=== PATIENT | female | born 1965 | race Two or more races ===

== ENCOUNTER 2024-10-19 17:56 | Emergency (ER) | payer MEDICAID, SELFPAY ==
--- NOTE | 2024-10-19 18:59 | EDNOTE_ITS ---
ED General RME/HPI General Chief complaint: Back Pain/Injury Stated complaint: BACK PAIN Time Seen by Provider: 10/19/24 18:51 Arrival date/time: 10/19/24 17:56 RME / HPI RME / HPI narrative: This section includes all my notes and documentations, including HPI, PE, and ED course. Boyd Knox MD HPI: 59yo female accompanied by her daughter presents to the ED for a chief complaint of left upper back pain x yesterday. Patient states the pain radiates to the left side of her chest. She denies any falls or injuries. She endorses having a mild cough and difficulty taking a deep breath. She denies any SOB or any other associated symptoms. No further complaints reported. ROS: All negative except as documented in HPI. Physical Exam: General: Alert and oriented. Hacking cough noted. Eyes: Conjunctivae and lids clear. ENT: No nasal congestion. Neck: Supple. Heart: RRR. Lungs: No respiratory distress. Good air movement with bibasilar rales. Abdomen: Soft and nontender. Legs: No clubbing, cyanosis, edema. Skin: Warm and dry. Neuro: Alert and oriented X 3. I reviewed all diagnostic test results. My interpretation of the EKG is sinus rhythm with no acute ST?T changes. My interpretation of the chest x-ray is infiltrates. Blood tests unremarkable, including negative troponin. At this point, diagnoses include pneumonia. Treatment here included Zithromax and prednisone and two Tylenol #3. Recommended a trial of outpatient treatment. Based on my best medical judgment, made decision no further evaluation or treatment indicated at this time. Patient understands and agrees to the discharge instructions customized and printed, see below. Discharge instructions from Dr. Knox: --Fortunately, there is no heart attack. You have pneumonia. --No physical exertion for 3 days to help rest the lungs. --No smoking or exposure to smoking or pets or dust or cold or humidity. --Zithromax to kill the germs causing the pneumonia. --Prednisone to help decrease the swelling in the airways. --Albuterol 2 puffs every 4-6 hours as needed for cough or shortness of breath. --Tylenol with codeine for severe pain or severe cough. --See a private doctor on 10/24/2024 if not completely better. --Seek immediate medical care with worsening or with any concerns. Boyd Knox MD Related Data Home Medications ?Medication ?Instructions ?Recorded ?Confirmed atorvastatin 10 mg tablet 10 mg PO QPM 01/18/23 01/25/23 levothyroxine 50 mcg tablet 50 mcg PO QDAY 01/18/23 01/25/23 (Euthyrox) Previous Rx's ?Medication ?Instructions ?Recorded pantoprazole 40 mg tablet,delayed 40 mg PO QDAY 30 days #30 tabs 01/18/23 release (Protonix) acetaminophen 300 mg-codeine 30 mg 2 tab PO TID PRN pain #20 tabs 10/19/24 tablet albuterol sulfate 90 mcg/actuation 2 inh inhalation QID PRN shortness 10/19/24 aerosol inhaler of breath or wheezing #8.5 grams azithromycin 500 mg tablet 500 mg PO QDAY 3 days #3 tabs 10/19/24 (Zithromax TRI-CHERIE) prednisone 20 mg tablet 40 mg PO DAILY 3 days #6 tabs 10/19/24 Allergies Allergy/AdvReac Type Severity Reaction Status Date / Time No Known Allergies Allergy Verified 10/19/24 18:02 Review of Systems Review of Systems Systems Reviewed: All systems reviewed, normal except as documented Past Medical History Past Medical History NEUROLOGIC: Positive Migraine; Negative Neurological Disorders or Seizures CARDIAC: Positive Cardiac Disorders and Hypercholesterolemia; Negative Congestive Heart Failure RESPIRATORY: Negative Chronic Obstructive Pulmonary Disease (COPD) GASTROINTESTINAL: Positive Gastrointestinal Disorders (h.pylori) and Obesity GENITOURINARY: Negative Genitourinary Disorders or Renal Disease MUSCULOSKELETAL: Negative Musculoskeletal Disorders ENDOCRINE: Negative Endocrine Disorders (pre diabeties), Diabetes Mellitus Type 1 or Diabetes Mellitus Type 2 HEMATOLOGIC: Negative Blood Disorders OTHER HISTORY: Positive Chicken Pox and Measles; Negative Blood Transfusions, Blood Transfusion Reaction, Anesthesia Reactions or Cancer Surgical History SURGICAL: Positive Tubal Ligation Social History SMOKING STATUS: Never smoker ED Exam Narrative Physical exam: As noted in HPI. Course Course Course Narrative: CXR is ordered for determining the etiology of chest pain. Quality Measures none Orders Category Date Time Status Bedside COVID-19 Antigen Test NOW Care 10/19/24 19:08 Active EKG (ED ONLY) *Do not use* NOW Care 10/19/24 19:08 Completed EKG (ED Only) Stat Exams 10/19/24 19:08 Ordered XR chest 1V portable Stat Exams 10/19/24 19:08 Completed CBC Stat Lab 10/19/24 19:38 Completed CMP [Comprehensive Metabolic Panel] Stat Lab 10/19/24 19:38 Completed Magnesium Stat Lab 10/19/24 19:38 Completed Troponin I Stat Lab 10/19/24 19:38 Completed ACETAMINOPHEN w/COD 300-30 [Tylenol w/Cod #3] Med 10/19/24 21:31 Discontinued 2 tab PO X1 ONE Azithromycin Po [Zithromax PO] Med 10/19/24 21:20 Discontinued 500 mg PO X1 ONE predniSONE Med 10/19/24 21:31 Discontinued 60 mg PO X1 ONE Vital Signs Vital signs: Vital Signs Temperature 98.6 F 10/19/24 19:07 Pulse Rate 84 10/19/24 19:07 Respiratory Rate 18 10/19/24 19:07 Blood Pressure 113/62 10/19/24 19:07 Pulse Oximetry (%) 98 10/19/24 19:07 Oxygen Delivery Method Room Air 10/19/24 19:07 MDM Patient data External records reviewed:: [facility] previous records (Per chart review, patient has no previous ED visits to this facility.) Clinical information provided by:: patient Social determinants that could affect healthcare access:: none Patient has the following chronic illnesses:: HLD How is presenting disease/condition affected by chronic disease/condition?: u neffected by Evaluation data The following diagnostics were reviewed and interpreted by me:: lab results, radiology exam(s) and EKG tracing(s) (My interpretation of the EKG is: Sinus rhythm (76 bpm) with nonspecific ST-T changes. Boyd Knox MD) Lab and/or radiology exams considered but not ordered:: none Interpretation Summary: Labs are unremarkable. CXR shows pneumonia. Medications Medications considered but not ordered:: none Medication administrations:: Medication Administration History Discontinued Medications Acetaminophen/Codeine Phosphate (Acetaminophen W/Cod 300-30 Tablet) 2 tab PO X1 ONE Stop: 10/19/24 21:32 Azithromycin (Azithromycin 250 Mg Tablet) 500 mg PO X1 ONE Stop: 10/19/24 21:21 Last Admin: 10/19/24 21:31 Dose: 500 mg Documented By: JOEL Prednisone (Prednisone 20 Mg Tablet) 60 mg PO X1 ONE Stop: 10/19/24 21:32 Prednisone and Zithromax and two Tylenol #3 Consultations Consultation(s) initiated? (list below): No Diagnosis Differential Diagnosis ED Complaint MDM: chest pain, back pain, pneumonia, Influenza, CA Most likely diagnosis given after review of the tests above:: pneumonia Admission Indicated Admission indicated?: not indicated Explain why admission is indicated or not indicated:: Admission criteria not met. Admission Request Was there a request for admission?: No Disposition Plan Disposition Plan: Discharge Discharge Attestation Discharge Attestation: The patient and all family members were given an opportunity to ask questions and understood the discharge instructions. Discharge instructions specifically effects, indications for sooner follow up or return to the emergency department, and the expected course of current diagnosis. Patient condition: Stable Medical Decision Making MDM Narrative MDM Narrative: Scribe Attestation: 10/19/24 - Megan Vogt am scribing for and in the presence of Dr. Knox. Differential Diagnosis Differential Diagnosis: chest pain, back pain, pneumonia, Influenza, CA Lab Data 10/19/24 19:38 10/19/24 19:38 Labs: Lab Results 10/19/24 Range/Units 19:38 WBC 10.4 (3.6-11.0) Thou/mm3 RBC 5.30 H (4.00-5.20) Miln/mm3 Hgb 15.4 (12.0-16.0) g/dL Hct 45.7 (36.0-46.0) % MCV 86 (80-100) fL MCH 29.1 (25.0-35.0) pg MCHC 33.7 (31.0-37.0) g/dl RDW Std Deviation 38.7 (36.4-46.3) fL Plt Count 273 (140-440) Thou/mm3 Neut % (Auto) 61 (37-80) % Lymph % (Auto) 29 (10-50) % [place] % (Auto) 6 (0-12) % Eos % (Auto) 3 (0-10) % Baso % (Auto) 1 (0-2.5) % Neut # (Auto) 6.4 (1.8-7.7) Thou/mm3 Lymph # (Auto) 3.0 (1.0-4.8) Thou/mm3 [place] # (Auto) 0.6 (0.0-0.8) Thou/mm3 Eos # (Auto) 0.3 (0.0-0.5) Thou/mm3 Baso # (Auto) 0.1 (0.0-0.2) Thou/mm3 Immature Gran # (Auto) 0.03 H (0.00-0.00) Thou/mm3 Absolute Nucleated RBC 0.00 (0.00-0.00) Thou/mm3 Immature Gran % 0 (0-0) % Nucleated RBC % 0 (0) /100 WBC Sodium 140 (136-145) mMol/L Potassium 4.2 (3.4-5.1) mMol/L Chloride 106 (98-107) mMol/L Carbon Dioxide 27.6 (20.0-31.0) mMol/L Anion Gap 6 L (7-16) BUN 12 (9-23) mg/dL Creatinine 0.9 (0.6-1.3) mg/dL Estim Creat Clear Calc Not Performed. eGFR > 60 (60 - ) See Note BUN/Creatinine Ratio 13 (12-20) Ratio Glucose 108 H (74-106) mg/dL Calculated Osmolality 280 (275-295) Calcium 9.7 (8.3-10.6) mg/dL Corrected Calcium 9.7 (8.5-10.1) mg/dL Magnesium 2.1 (1.6-2.6) mg/dL Total Bilirubin 1.0 (0.3-1.2) mg/dL AST 26 (0-34) U/L ALT 31 (10-49) U/L Alkaline Phosphatase 92 (46-116) U/L Troponin I < 0.002 (0.0-0.045) ng/mL Total Protein 7.7 (5.7-8.2) gm/dL Albumin 4.9 (3.5-5.0) gm/dL Globulin 2.8 (2.3-3.5) gm/dL Albumin/Globulin Ratio 1.8 (1.2-2.2) Discharge Plan Plan Patient Disposition: HOME (Self Care) Prescriptions/Referrals Prescriptions/Med Rec: New prednisone 20 mg tablet 40 mg PO DAILY 3 Days Qty: 6 0RF Taper: Prednisone Taper 20 mg DAILY for 2 Days and 0 Hour 10 mg DAILY for 2 Days and 0 Hour 5 mg DAILY for 7 Days and 0 Hour acetaminophen-codeine 300-30 mg tablet 2 tab PO TID MDD 6 PRN (Reason: pain) Qty: 20 0RF albuterol sulfate 90 mcg/actuation HFA aerosol inhaler 2 inh inhalation QID PRN (Reason: shortness of breath or wheezing) Qty: 8.5 0RF azithromycin [Zithromax TRI-CHERIE] 500 mg tablet 500 mg PO QDAY 3 Days Qty: 3 0RF No Action atorvastatin 10 mg Tablet 10 mg PO QPM levothyroxine [Euthyrox] 50 mcg Tablet 50 mcg PO QDAY pantoprazole [Protonix] 40 mg Tablet,Delayed Release (Dr/Ec) 40 mg PO QDAY 30 Days Qty: 30 2RF Referrals: Jw Ramesh MD [Primary Care Provider] - In 1 week Problem List Clinical Impression: Pneumonia Patient/Caregiver Discharge Instructions Discharge Activity: activity as tolerated Education Materials: ED Pneumonia (Adult) Additional Instructions: Discharge instructions from Dr. Knox: --Fortunately, there is no heart attack. You have pneumonia. --No physical exertion for 3 days to help rest the lungs. --No smoking or exposure to smoking or pets or dust or cold or humidity. --Zithromax to kill the germs causing the pneumonia. --Prednisone to help decrease the swelling in the airways. --Albuterol 2 puffs every 4-6 hours as needed for cough or shortness of breath. --Tylenol with codeine for severe pain or severe cough. --See a private doctor on 10/24/2024 if not completely better. --Seek immediate medical care with worsening or with any concerns. Print Language: [place] Stand Alone Forms: [employer] Info., Patient Portal Info Letter
[2024-10-19 19:07] VITALS: BP 113/62; PULSE 84; RESP 18; TEMP 37; O2SAT 98
--- NOTE | 2024-10-19 19:08 | XR_ITS ---
Examination: AP chest single view Technique: AP upright portable chest single view Exam date and time: October 19, 2024 1931 hrs. Indications: Shortness of breath today. Findings: Early pneumonia right base obscuring detail medial portion right hemidiaphragm Normal heart size No pulmonary edema Impression: Early pneumonia right base
[2024-10-19 19:53] LABS: Basophils # (Auto) 0.1 Thou/mm3 (0.0-0.2); Basophils % (Auto) 1 % (0-2.5); Eosinophils # (Auto) 0.3 Thou/mm3 (0.0-0.5); Eosinophils % (Auto) 3 % (0-10); Hematocrit 45.7 % (36.0-46.0); Hemoglobin 15.4 g/dL (12.0-16.0); Immature Granulocytes % (Auto) 0 % (0-0); Immature Granulocytes Auto 0.03 Thou/mm3 (0.00-0.00); Lymphocytes % (Auto) 29 % (10-50); Mean Corpuscular HGB Conc 33.7 g/dl (31.0-37.0); Mean Corpuscular Hemoglobin 29.1 pg (25.0-35.0); Mean Corpuscular Volume 86 fL (80-100); Monocytes # (Auto) 0.6 Thou/mm3 (0.0-0.8); Monocytes % (Auto) 6 % (0-12); Neutrophils # (Auto) 6.4 Thou/mm3 (1.8-7.7); Neutrophils % (Auto) 61 % (37-80); Nucleated Red Blood Cell % 0 /100 WBC (0); Platelet Count 273 Thou/mm3 (140-440); RDW Standard Deviation 38.7 fL (36.4-46.3); White Blood Count 10.4 Thou/mm3 (3.6-11.0)
[2024-10-19 20:18] LABS: Alanine Aminotransferase 31 U/L (10-49); Albumin, Serum 4.9 gm/dL (3.5-5.0); Albumin/Globulin Ratio 1.8 (1.2-2.2); Alkaline Phosphatase 92 U/L (46-116); Anion Gap 6 (7-16); Aspartate Amino Transferase 26 U/L (0-34); BUN/Creatinine Ratio 13 Ratio (12-20); Blood Urea Nitrogen 12 mg/dL (9-23); Calcium 9.7 mg/dL (8.3-10.6); Calcium (Corrected) 9.7 mg/dL (8.5-10.1); Carbon Dioxide 27.6 mMol/L (20.0-31.0); Chloride 106 mMol/L (98-107); Creatinine (Component) 0.9 mg/dL (0.6-1.3); Globulin 2.8 gm/dL (2.3-3.5); Glucose 108 mg/dL (74-106); Magnesium 2.1 mg/dL (1.6-2.6); Osmolality,Calculated 280 (275-295); Potassium 4.2 mMol/L (3.4-5.1); Sodium 140 mMol/L (136-145); Total Protein 7.7 gm/dL (5.7-8.2); Troponin I < 0.002 ng/mL (0.0-0.045); eGFR > 60 See Note
[2024-10-19] MEDS: AZITHROMYCIN 250 MG TABLET 500 MG PO (21:31)
[2024-10-19] MEDS: predniSONE 20 MG TABLET 60 MG PO (21:51)
[2024-10-19] MEDS: ACETAMINOPHEN w/COD 300-30 TABLET 2 TAB PO (21:51)
== END 2024-10-19 21:54 | disposition home or self-care (01) ==
PROVIDERS: Emergency Provider Emergency Medicine; PCP Internal Medicine
DX: J18.9 Pneumonia, unspecified organism (principal); R94.31 Abnormal electrocardiogram [ECG] [EKG]
CPT/HCPCS: 36415; 71045; 80053; 83735; 84484; 85025; 87811; 93005; 99283; J7512; A9270

== ENCOUNTER 2025-01-21 10:09 | Outpatient (RCR) | payer MEDICAID, SELFPAY ==
--- NOTE | 2025-01-21 16:53 | CTCCONSULT_ITS ---
Patient: SARINA MCHUGH : 1965 MR#: [id number] Page 2 of 2 CONSULTATION NOTE DATE OF CONSULTATION: 01/21/2025 NAME: SARINA MCHUGH ACCOUNT: [id number] : 1965 AGE: 59 REFERRING PHYSICIAN: Eugenia Gonzalez MD ([place]) PRIMARY PHYSICIAN: Eugenia Gonzalez MD ([place]) REASON FOR VISIT: Erythrocytosis HISTORY OF PRESENT ILLNESS: 59-year-old female with a diagnosis of erythrocytosis. Patient does not have any history of cancer or leukemia. Patient is not on any kind of supplement. She snores at nighttime. She was on Wegovy for weight loss but was unable to tolerate it. 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 levothyroxine - 50 mcg 1 tab Daily Medications Last Reconciled by Raissa Henning RN on 01/21/2025 ALLERGIES: REVIEW OF SYSTEMS: A complete 14-point review of systems was performed and is negative except as noted in interval history. PHYSICAL EXAMINATION: VITAL SIGNS: Temperature?99, B/P?119/76, Height?63?inches, Oxygen?Saturation?100% Weight?189?lbs PAIN: 0 - No pain ECOG Performance Status: 1 - Symptomatic; ambulatory; restricted in strenuous activity GENERAL APPEARANCE: Appears well, in no apparent distress, appropriately interactive. HEENT: Normocephalic, no temporal wasting, normal conjunctiva, no scleral icterus, normal hearing, lips without lesions, neck normal range of motion. CARDIOVASCULAR: Not assessed. PULMONARY: Normal respiratory effort, no respiratory distress or use of accessory muscles, speaking in full sentences, no tachypnea. EXTREMITIES: No pedal edema or cyanosis. SKIN: Normal skin appearance. NEUROLOGIC: Alert and oriented x4. PSHYCHIATRIC: Appropriate affect, mood normal, behavior normal, intact thought and speech. 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 Patient's erythrocytosis likely from hypoxia from her obstructive sleep apnea Will refer patient for sleep study Will check for JAK2 and erythropoietin level testosterone level and myeloproliferative panel Will repeat labs Start phlebotomy if patient's hematocrit is above 45 ORDERS: Order # Description [id number] Comprehensive Metabolic Panel - 12 + CBC with Auto Diff [id number] Hereditary Hemochromatosis DNA analysis [id number] Testosterone; Total + Erythropoieten Level + Myeloproliferative Neoplasms Extended Reflex Panel + PAULINO - 2 Mutation Quant [id number] Follow Up 2 Months [id number] RETURN TO CLINIC: 2 months with the blood and sleep study BILLING AND COMPLIANCE: I reviewed external records from providers outside my specialty as summarized above. I spent a total of 50 minutes on this patient?s care on the day of their visit excluding time spent related to any billed procedures. This time includes time spent with the patient as well as time spent documenting in the medical record, reviewing patients records and tests, obtaining history, placing orders, communicating with other healthcare professionals, counseling the patient, family or caregiver, and/or care coordination for the diagnoses above. Electronically Signed by: Wesley Goodson MD T: 4:51 PM CC: Eugenia?Carlos?(chandana),? PCP: Eugenia Gonzalez ([place]) Referring: Eugenia Gonzalez ([place]) This document was completed utilizing speech recognition software. Grammatical errors, random word insertions, pronoun errors, and incomplete sentences are an occasional consequence of this system due to software limitations, ambient noise, and hardware issues. Any formal questions or concerns about the content, text or information contained within the body of this dictation should be directly addressed to the provider for clarification.
== END 2025-01-26 23:59 | disposition home or self-care (01) ==
LOC: SCTC 10:09
PROVIDERS: PCP Physician Assistant; Referring Provider Physician Assistant; Visit Provider Internal Medicine Hematology & Oncology
DX: D75.1 Secondary polycythemia (principal)
CPT/HCPCS: 99213; G0463

== ENCOUNTER 2025-03-19 15:01 | Outpatient (RCR) | payer MEDICAID, SELFPAY | END 2025-03-28 23:59 | disposition home or self-care (01) | LOC: SCTC 15:01 | PROVIDERS: PCP Physician Assistant; Referring Provider Nurse Practitioner Family; Visit Provider Nurse Practitioner Family | DX: D75.1 Secondary polycythemia (principal) | CPT/HCPCS: 99212; G0463 ==

== ENCOUNTER 2025-04-21 13:04 | Outpatient (RCR) | payer MEDICAID, SELFPAY | END 2025-04-27 23:59 | disposition home or self-care (01) | LOC: SCTC 13:04 | PROVIDERS: PCP Physician Assistant; Referring Provider Physician Assistant; Visit Provider Nurse Practitioner Family | DX: D75.1 Secondary polycythemia (principal); E66.9 Obesity, unspecified; Z68.33 Body mass index [BMI] 33.0-33.9, adult | CPT/HCPCS: 99212; G0463 ==

== ENCOUNTER 2025-10-15 10:28 | Outpatient (RCR) | payer MEDICAID, SELFPAY | END 2025-10-28 23:59 | disposition home or self-care (01) | LOC: SCTC 10:28 | PROVIDERS: PCP Physician Assistant; Referring Provider Physician Assistant; Visit Provider Nurse Practitioner Family | DX: D75.1 Secondary polycythemia (principal); E66.9 Obesity, unspecified; Z68.33 Body mass index [BMI] 33.0-33.9, adult | CPT/HCPCS: 99212; G0463 ==